=== PATIENT | male | born 1940 | race Caucasian/White ===

== ENCOUNTER 2022-06-18 06:07 | Emergency (ER) | payer MEDICARE, BC ==
[2022-06-18] MEDS: Sodium Chloride 0.9% 1,000 ML IV ONE (06:15)
[2022-06-18] MEDS: cefTRIAXone 2 GM Vial IVPUSH ONE (07:08)
[2022-06-18] MEDS: Lactated Ringers 1,000 ML IV SCH (07:15)
[2022-06-18 07:43] LABS: CORONAVIRUS COVID-19 NAA NEGATIVE (NEGATIVE)
[2022-06-18 07:48] LABS: ANION GAP 15.9 mmol/L (5-15)
[2022-06-18 10:32] VITALS: BP 126/77; PULSE 71
== END 2022-06-18 11:00 | disposition home or self-care (01) ==
LOC: VM.ED 06:07
DX: K52.9 Noninfective gastroenteritis and colitis, unspecified (principal); R50.9 Fever, unspecified; I25.10 Atherosclerotic heart disease of native coronary artery without angina pectoris; E78.00 Pure hypercholesterolemia, unspecified; I10 Essential (primary) hypertension; Z88.7 Allergy status to serum and vaccine; Z79.899 Other long term (current) drug therapy; Z20.822 Contact with and (suspected) exposure to COVID-19
CPT/HCPCS: 0240U; 36415; 70450; 71046; 74019; 80053; 81001; 83605; 83735; 84145; 84484; 85025; 86140; 87040; 87086; 93005; 96361; 96374; 99284; 99285-25; J0696; J7030; J7120

== ENCOUNTER 2023-06-04 10:34 | Emergency (ER) | payer MEDICARE, BC ==
[2023-06-04 15:34] VITALS: BP 132/66; PULSE 73
== END 2023-06-04 11:15 | disposition home or self-care (01) ==
LOC: VM.ED 10:34
DX: U07.1 COVID-19 (principal); R09.81 Nasal congestion; I10 Essential (primary) hypertension; E78.00 Pure hypercholesterolemia, unspecified; Z79.899 Other long term (current) drug therapy; Z88.7 Allergy status to serum and vaccine
CPT/HCPCS: 99283